=== PATIENT | female | born 1975 | race Caucasian/White ===

== ENCOUNTER → 2019-08-10 16:04 | Outpatient (CLI) | payer OTHER, SELFPAY ==
--- NOTE | ~2019-08-10 | MR_ITS ---
EXAMINATION: MR shoulder RT wo con DATE: 08/10/2019 16:48 INDICATION: Chronic right shoulder pain. TECHNIQUE: Magnetic resonance imaging (MRI) of the right shoulder was performed without intravenous c ontrast. Sequences included axial PD-weighted FS FSE, coronal oblique PD-weighted FS FSE and T2-weigh nses FS FSE, and sagittal oblique T2-weighted FS FSE and T1-weighted FSE. COMPARISON: None. FINDINGS: Coracoacromial arch: The acromion undersurface is curved in morphology (type II). The acromioclavicular joint is normal. T here is mild subacromial/subdeltoid bursitis. Rotator cuff: There is mild supraspinatus and infraspinatus tendinopathy. No tear. Teres minor tendon is normal. Askew bscapularis tendon is normal. There is no asymmetric fatty atrophy of the rotator cuff muscle bellies . Biceps tendon and glenoid labrum: Biceps tendon is in bicipital groove. Intra-articular biceps tendon is normal. The glenoid labrum is normal. Fluid: There is no glenohumeral joint effusion. Bones/cartilage: Glenoid cartilage is normal. Humeral head cartilage is normal. IMPRESSION: 1. Mild rotator cuff tendinopathy. No tear. 2. Mild subacromial/subdeltoid bursitis. Reviewed, dictated and finalized at location A.
== END ==
PROVIDERS: Visit Provider Orthopaedic Surgery
DX: M25.511 Pain in right shoulder (principal); G89.29 Other chronic pain; M75.51 Bursitis of right shoulder
CPT/HCPCS: 73221

== ENCOUNTER 2021-03-31 09:54 | Outpatient (CLI) | payer OTHER, SELFPAY ==
--- NOTE | ~2021-03-31 | MR_ITS ---
EXAMINATION: MR pelvis wo con DATE: 03/31/2021 10:51 INDICATION: Pelvic pain. TECHNIQUE: Magnetic resonance imaging (MRI) of the pelvis was performed without intravenous contrast. Sequences included axial and coronal T1-weighted FSE and T2-weighted FS FSE. COMPARISON: None. FINDINGS: Bone alignment is normal. No fracture. The hip joint spaces are normal. No hip joint effusion. There are no pathologically enlarged lymph nodes. There is no free intraperitoneal fluid. There are nabothi an cysts in the cervix. There is mild tendinopathy of the hamstring origins. The iliopsoas tendons ar e normal. The gluteus minimus and gluteus medius tendons are normal bilaterally. No significant troch anteric bursitis. IMPRESSION: 1. No specific etiology for the patient's symptoms. Reviewed, dictated and finalized at location A. DEVELOPER
== END 2021-03-31 09:55 | disposition home or self-care (01) ==
PROVIDERS: PCP Family Medicine Sports Medicine; Visit Provider Orthopaedic Surgery
DX: R10.2 Pelvic and perineal pain (principal)
CPT/HCPCS: 72195

== ENCOUNTER 2022-11-19 06:33 | Outpatient (CLI) | payer OTHER, SELFPAY ==
--- NOTE | ~2022-11-19 | MR_ITS ---
MRI of the left hip Clinical history: Pain Technique: Coronal T1-weighted, T2-weighted, and proton-density fat-sat images, and axial T1-weighted and proton-density fat-sat images were acquired through the pelvis. Coronal T2-weighted images and c oronal, axial, and sagittal proton-density fat-sat images were acquired through the left hip. COMPARISON: 03/31/2021 Findings: There is no fracture, avascular necrosis, or transient osteoporosis of either hip. Bone mar row signals of the proximal femora and visualized pelvic bones are unremarkable. Bilateral hip joints are intact. Bilateral SI joints are intact. No evidence for inflammatory or degenerative arthropathy . No joint effusion. No left acetabular labral tear identified. Visualized musculature about the pelvis and left hip is unremarkable. No muscle atrophy or edema iden tified. There is moderate tendinosis of the bilateral hamstring tendon origins, with low-grade partia l thickness tearing at the left hamstring tendon origin. Remaining tendons appear intact. No soft tis chanelle mass or fluid collection evident. IMPRESSION: Moderate tendinosis of the bilateral hamstring tendon origins, with low-grade partial thickness teari ng at the left hamstring tendon origin. No other significant findings. Reviewed, dictated and finalized at location . IMPRESSION: Moderate tendinosis of the bilateral hamstring tendon origins, with low-grade p artial thickness tearing at the left hamstring tendon origin. No other significant findings.
== END 2022-11-19 06:34 | disposition home or self-care (01) ==
PROVIDERS: PCP Family Medicine Sports Medicine; Visit Provider Orthopaedic Surgery
DX: M79.605 Pain in left leg (principal)
CPT/HCPCS: 73721